=== PATIENT | male | born 1980 | race Caucasian/White ===

== ENCOUNTER 2017-12-24 20:20 | Emergency (ER) | payer BC ==
[~2017-12-24] VITALS: Ht 177.8 cm; Wt 70.5 kg
[~2017-12-24 20:20] MED LIST: ANUSOL HC CREAM30 GM TP; NO HOME MEDICATIONS; NORCO 325 MG-51 TAB PO; PERCOCET 325 MG1 TA2 PO; ZITHROMAX 250M250 MG PO; [UNRECOGNIZED DRUG - OTHER] TP
[2017-12-24 20:24] VITALS: BP 124/64; TEMP 98.7
[2017-12-24] MEDS ORDERED: NORCO 325 MG-51 TAB PO (21:24)
[2017-12-24 21:55] VITALS: PULSE 75
== END 2017-12-24 21:59 | disposition home or self-care (01) ==
LOC: COL.ER 20:20
DX: T15.01XA Foreign body in cornea, right eye, initial encounter (principal); F17.210 Nicotine dependence, cigarettes, uncomplicated; X58.XXXA Exposure to other specified factors, initial encounter

== ENCOUNTER 2019-04-30 17:48 | Emergency (ER) | payer BC ==
[~2019-04-30] VITALS: Ht 157.5 cm; Wt 70.5 kg
[2019-04-30 17:52] VITALS: BP 136/88; TEMP 97.5
[2019-04-30 18:29] VITALS: PULSE 75
== END 2019-04-30 18:31 | disposition home or self-care (01) ==
LOC: COL.ER 17:48
DX: S90.32XA Contusion of left foot, initial encounter (principal); F17.210 Nicotine dependence, cigarettes, uncomplicated; Z88.0 Allergy status to penicillin; W20.8XXA Other cause of strike by thrown, projected or falling object, initial encounter; Y92.009 Unspecified place in unspecified non-institutional (private) residence as the place of occurrence of the external cause

== ENCOUNTER 2019-06-09 18:09 | Emergency (ER) | payer BC ==
[~2019-06-09] VITALS: Ht 177.8 cm; Wt 71.4 kg
[2019-06-09 18:13] VITALS: BP 128/81; TEMP 98.6
[2019-06-09 19:26] LABS: BASO # 0.1 (0.0-0.2); BASO % 1.2 % (0.0-2.0); EOS # 0.2 (0.0-0.7); EOS % 2.8 % (0-4.0); GRAN # 2.9 (1.4-6.5); GRAN % 51.1 % (42.2-75.2); HEMOGLOBIN 14.2 g/dl (13.5-18.0); LYMPH # 2.1 (1.2-3.4); LYMPH % 37.1 % (20.0-51.0); MEAN CELL VOLUME 93 fl (80.0-100.0); MEAN CORPUSCULAR HEMOGLOBIN 32 pg (27.0-31.0); MEAN CORPUSCULAR HGB CONC 35 g/dl (33.0-37.0); MEAN PLATELET VOLUME 9.6 fl (7.4-10.4); MONO # 0.4 (0.1-0.6); MONO % 7.4 % (1.7-9.3); PLATELET COUNT 261 K/mm3 (130-400); RED BLOOD COUNT 4.43 M/mm3 (4.20-5.60); REDCELL DISTRIBUTION WIDTH-CV 12.6 % (11.5-14.5)
[2019-06-09 19:28] LABS: CALCIUM 8.9 mg/dL (8.4-10.2); CREATININE, serum 0.78 (0.66-1.25); POTASSIUM 4.1 mmol/L (3.4-5.0)
[2019-06-09] MEDS ORDERED: PROAIR HFA0.09 MG/AC IH (19:52)
[2019-06-09] MEDS ORDERED: MEDROL 4MG DOSPA4 MG PO (19:52)
[2019-06-09 20:33] VITALS: PULSE 78
== END 2019-06-09 20:33 | disposition home or self-care (01) ==
LOC: COL.ER 18:09
PROVIDERS: Physician Assistant
DX: J20.9 Acute bronchitis, unspecified (principal); F17.210 Nicotine dependence, cigarettes, uncomplicated
CPT/HCPCS: J7512

== ENCOUNTER 2021-01-04 18:40 | Emergency (ER) | payer BC ==
[~2021-01-04] VITALS: Ht 177.8 cm; Wt 73.2 kg
[~2021-01-04 18:40] MED LIST changes: +MEDROL 4MG DOSPA4 MG PO; +PROAIR HFA0.09 MG/AC IH
[2021-01-04 21:12] VITALS: BP 136/78; PULSE 78; TEMP 98
== END 2021-01-04 21:12 | disposition home or self-care (01) ==
LOC: COL.ER 18:40
DX: S61.011A Laceration without foreign body of right thumb without damage to nail, initial encounter (principal); F17.210 Nicotine dependence, cigarettes, uncomplicated; W26.0XXA Contact with knife, initial encounter